=== PATIENT | female | born 1965 | race Two or more races ===

== ENCOUNTER 2020-06-14 12:04 | Outpatient (CLI) | payer OTHER | END 2020-06-14 12:12 | disposition home or self-care (01) | LOC: SONOGRAMA 12:04 | DX: E04.1 Nontoxic single thyroid nodule (principal) ==

== ENCOUNTER 2020-08-16 14:44 | Outpatient (CLI) | payer OTHER | END 2020-08-16 15:07 | disposition home or self-care (01) | LOC: SONOGRAMA 14:44 → MAMO-SONO 14:45 → SONOGRAMA 15:07 | DX: N64.59 Other signs and symptoms in breast (principal) ==